=== PATIENT | female | born 1930 | race Caucasian/White ===

== ENCOUNTER 2017-10-23 16:13 | Emergency (ER) | payer OTHER ==
[2017-10-23] MEDS ORDERED: HYDROCODONE/APAP 5/325 MG TAB ONE (17:36)
--- NOTE | 2017-10-23 17:44 | RAD REPORT ---
EXAM DESCRIPTION: CT - Pelvis Wo Cont - 10/23/2017 5:27 pm CLINICAL HISTORY: Fall, pelvic pain, left groin pain COMPARISON: None. TECHNIQUE: Axial 2 millimeter thick images of the pelvis obtained without oral or IV contrast. Sagit patricia and coronal reconstruction images generated and reviewed. FINDINGS: No proximal femur fracture or femoral head dislocation. Nondisplaced fracture is present t he inferior margin of the ischium. Fractures are present at the superior and inferior pubic rami junc tion with the pubic symphysis. No acetabulum fractures seen. Subtle buckling of the cortex of the lef t sacral ala present. Sacral ala fracture is suspected. SI joint degenerative changes are present. No pathologic bone process. Advanced disc, endplate and facet degenerative changes are present at L4-5 and L5-S1. Acute component not suspected. A 9 x 5 centimeter sized hematoma is present in the soft tissues of the left pelvis superior to the r ami fracture. Mass effect displaces the bladder to the right. The hematoma shows variable attenuation with a 3 centimeter central portion that shows fluid fluid level. Additional a amorphous stranding i s seen in soft tissues. Patient has a large amount of stool filling but not dilating the colon. An acute colon process is not seen. IMPRESSION: Nondisplaced fractures of the superior and inferior rami at the pubic symphysis. There i s nondisplaced fracture of the left ischium and probable fracture of the left sacral ala. A 9 x 5 centimeter hematoma is present in the left anterior pelvic soft tissues along the superior ma rgin of the superior pubic ramus. No femur fracture.
--- NOTE | 2017-10-23 17:51 | RAD REPORT ---
EXAM DESCRIPTION: RAD - Shoulder Left 2 View - 10/23/2017 5:39 pm CLINICAL HISTORY: Shoulder pain, limited range of motion COMPARISON: None. TECHNIQUE: Internal and external rotation views of the left shoulder were obtained. FINDINGS: There is no fracture or dislocation. AC joint is normal in appearance. Acromial humeral sandie int space is normal. No abnormal soft tissue calcifications. Ribs and parenchyma of the upper left ch est show no acute findings. No foreign body, air or suspicious soft tissue finding. IMPRESSION: Negative two-view left shoulder examination for acute or significant finding.
[2017-10-23] MEDS ORDERED: ONDANSETRON 4 MG (ODT) TAB ONE (18:54)
--- NOTE | 2017-10-23 18:57 | RAD REPORT ---
EXAM DESCRIPTION: RAD - Hand Left 3 View - 10/23/2017 5:39 pm CLINICAL HISTORY: Hand pain after fall COMPARISON: None. FINDINGS: No fracture, dislocation or periosteal reaction noted. No acute or destructive bone proces s identified. IP joint degenerative changes are present mild to moderate in severity. Advanced degene rative change present at the third MCP joint with mild MCP joint elsewhere. Moderate degenerative edinson nge at the carpal first metacarpal articulation. No calcification or mass in the soft tissues. IMPRESSION: Left hand degenerative changes are present ranging from mild to advanced. No fracture or other acute finding confirmed.
--- NOTE | 2017-10-23 18:58 | RAD REPORT ---
EXAM DESCRIPTION: RAD - Wrist Left 3 View - 10/23/2017 5:39 pm CLINICAL HISTORY: Fall, wrist pain COMPARISON: None. FINDINGS: No fracture is identified. There is no dislocation or periosteal reaction noted. No acute or destructive bone process. Radiocarpal joint space is narrowed slightly. Carpal and metacarpal dege nerative changes are detailed in the hand report. Soft tissues near the distal ulna are prominent wit h the baseline unknown. No foreign body or calcification in the soft tissues. IMPRESSION: Soft tissue swelling near the distal ulna. No fracture or acute bone or joint finding.
--- NOTE | 2017-10-23 19:05 | ER ---
Nurse's Notes [facility] Name: Emani Alejandro Age: 87 yrs Sex: Female : 1930 Arrival Date: 10/23/2017 Time: 16:17 Bed 18 Private MD: Kranthi Owen T Diagnosis: NONDISPLACED FX OF SUPERIOR AND INFERIOR RAMI AT THE PUBIC SYMPHYSIS. ;ONDISPLACED FX LEFT ISCHIUM AND LEFT SACRAL ALA;HEMATOMA LEFT ANTERIOR PELVIC SOFT TISSUES Presentation: 10/23 16:28 Presenting complaint: Patient states: Pt fell onto concrete after turning around sv incorrectly. c/o left groin pain. Pt was able to ambulate after the fall. Care prior to arrival: None. Mechanism of Injury: Fall from standing position. 16:28 Acuity: SHRUTHI 3 sv 16:28 Method Of Arrival: Wheelchair sv 16:31 Transition of care: patient was not received from another setting of care. Onset of sv symptoms was October 23, 2017. 16:51 Risk Assessment: Do you want to hurt yourself or someone else? Patient reports no hj desire to harm self or others. Initial Sepsis Screen: Does the patient meet any 2 criteria? No. Patient's initial sepsis screen is negative. Does the patient have a suspected source of infection? No. Patient's initial sepsis screen is negative. 16:52 Trauma event details: Injury occurred in the [facility], Injury occurred: at home. Injury occurred: October 23, 2017. Triage Assessment: 16:45 General: Appears in no apparent distress. uncomfortable, Behavior is calm, cooperative, hj appropriate for age. 16:52 Pain: Complains of pain in groin. hj Trauma Activation: Not Applicable Physician: ED Physician; Name: ; Notified At: ; Arrived At: Physician: General Surgeon; Name: ; Notified At: ; Arrived At: Physician: Radiology; Name: ; Notified At: ; Arrived At: Physician: Respiratory; Name: ; Notified At: ; Arrived At: Physician: Lab; Name: ; Notified At: ; Arrived At: Historical: - Allergies: 16:30 No Known Allergies; sv - Home Meds: 16:30 Aspirin Oral [Active]; sv - PMHx: 16:30 Hypertension; Anxiety; High Cholesterol; Hypothyroidism; sv - PSHx: 16:30 Hysterectomy; Tonsillectomy; sv - Immunization history:: Adult Immunizations unknown. - Social history:: Smoking status: Patient/guardian denies using tobacco, Patient/guardian denies using alcohol. - Immunization history: Last tetanus immunization: unknown. - Ebola Screening: : Patient negative for fever greater than or equal to 101.5 degrees Fahrenheit, and additional compatible Ebola Virus Disease symptoms Patient denies exposure to infectious person Patient denies travel to an Ebola-affected area in the 21 days before illness onset. - Family history:: not pertinent. - Hospitalizations: : No recent hospitalization is reported. - History obtained from: . Screenin:44 Abuse screen: Denies threats or abuse. Denies injuries from another. Nutritional hj screening: No deficits noted. Tuberculosis screening: No symptoms or risk factors identified. Fall Risk None identified. Primary Survey: 16:44 A: Airway: patent, No supplemental oxygen in use on arrival. Oral cavity: clear, gag hj reflex present, Trachea midline. Breathing/Chest: Respiratory pattern: regular, Respiratory effort: spontaneous, unlabored, Breath sounds: clear, Chest inspection: symmetrical rise and fall of the chest. Circulation: Cardiac rhythm: sinus rhythm Heart tones present. Pulses: palpable right radial artery and left radial artery. Skin color: pink, Skin temperature: warm, dry. Disability Alert. 16:50 Reassessment Airway Airway Patent Oxygen No O2 Breathing/Chest Respiratory pattern hj Regular Respiratory effort Spontaneous Unlabored Breath sounds Clear Chest inspection Symmetrical Circulation Heart rhythm Sinus rhythm Heart tones Present Pulses Palpable Color [place] Temperature Warm Dry Disability Alert. 18:08 Reassessment Airway Airway Patent Oxygen No O2 Oral cavity Clear +Gag reflex Trachea hj Midline Breathing/Chest Respiratory pattern Regular Respiratory effort Spontaneous Unlabored Breath sounds Clear Chest inspection Symmetrical Circulation Heart rhythm Sinus rhythm Heart tones Present Pulses Palpable Color [place] Temperature Warm Dry Disability Alert. Secondary Survey: 16:44 HEENT: No deficits noted. Gastrointestinal: No deficits noted. : No signs and/or hj symptoms were reported regarding the genitourinary system. Musculoskeletal: Reports as documented in asessment;. Assessment: 16:53 Reassessment: see triage for assessment;. hj 18:07 Reassessment: Patient and/or family updated on plan of care and expected duration. Pain hj level reassessed. Patient is alert, oriented x 3, equal unlabored respirations, skin warm/dry/pink. sitting on wheel chair awaiting results and POC;. 19:38 Reassessment: Patient appears in no apparent distress at this time. Patient and/or jd3 family updated on plan of care and expected duration. Pain level reassessed. Patient is alert, oriented x 3, equal unlabored respirations, skin warm/dry/pink. Vital Signs: 16:30 BP 151 / 89; Pulse 77; Resp 18; Temp 98.7; Pulse Ox 94% ; Weight 47.63 kg; Height 5 ft. sv 4 in. (162.56 cm); Pain 0/10; 18:08 BP 150 / 88; Pulse 76; Resp 18; Pulse Ox 100% on R/A; hj 18:39 BP 140 / 62; Pulse 78; Resp 18; Pulse Ox 98% ; hj 19:37 BP 148 / 52; Pulse 82; Resp 16 S; Pulse Ox 95% on R/A; jd3 16:30 Body Mass Index 18.02 (47.63 kg, 162.56 cm) sv Mando Com[place] Score: 16:44 Eye Response: spontaneous(4). Verbal Response: oriented(5). Motor Response: obeys hj commands(6). Total: 15. Trauma Score (Adult): 16:44 Eye Response: spontaneous(1); Verbal Response: oriented(1); Motor Response: obeys hj commands(2); Systolic BP: > 89 mm Hg(4); Respiratory Rate: 10 to 29 per min(4); [place] Score: 15; Trauma Score: 12 ED Course: 16:17 Patient arrived in ED. mr 16:17 Kranthi Owen MD is Private Physician. mr 16:29 Triage completed. sv 16:31 Arm band placed on right wrist. sv 16:38 Anthony Corley, KEYSHA is Primary Nurse. hj 16:39 Ana Acosta FNP is PHCP. kav 16:39 Jak Schafer MD is Attending Physician. kav 16:51 Patient maintains SpO2 saturation greater than 95% on room air. hj 16:52 Patient has correct armband on for positive identification. Bed in low position. Call light in reach. Side rails up X 1. Adult w/ patient. 16:52 Thermoregulation: warm blanket given to patient. hj 17:05 Initial lab(s) drawn, by me, sent to lab. Inserted saline lock: 22 gauge in right hj antecubital area, using aseptic technique. Blood collected. 17:23 CT completed. Patient tolerated procedure well. Patient moved to CT via wheelchair. sw Patient moved back from CT. 17:[address] In Process Unspecified. EDMS 17:37 X-ray completed. Patient tolerated procedure well. Patient moved back from radiology. ml 17:37 Shoulder Left (2 View) XRAY In Process Unspecified. EDMS 17:37 Wrist Left (3 View) XRAY In Process Unspecified. EDMS 17:37 Hand Left 3 View XRAY In Process Unspecified. EDMS 19:15 Straight cath inserted, using sterile technique, 16 Fr. Specimen obtained. Returned jd3 clear yellow urine. Patient tolerated well. done by Susanne bentley. 19:47 No provider procedures requiring assistance completed. Patient transferred, IV remains jd3 in place. Administered Medications: 17:28 Drug: [place] 5 mg-325 mg 1 tabs Route: PO; hj 18:24 Follow up: Response: No adverse reaction; Pain is decreased hj 19:10 Follow up: Response: No adverse reaction; Pain is decreased hj 18:52 Drug: Zofran 4 mg Route: PO; hj 18:53 Follow up: Response: No adverse reaction; Nausea is decreased hj 19:09 Follow up: Response: No adverse reaction hj 19:22 Drug: NS 0.9% 1000 ml Route: IV; Rate: 75 ml/hr; Site: right antecubital; jd3 19:47 Follow up: IV Status: Infusion continued upon transfer jd3 Intake: 19:48 PO: 0ml; Total: 0ml. jd3 Output: 19:48 Urine: 150ml (Straight Cath); Total: 150ml. jd3 Outcome: 19:05 ER care complete, transfer ordered by MD. lópez 19:48 Transferred by ground EMS to [facility], Transfer form completed. X-rays sent jd3 w/ patient. Note: report given to [facility] and [facility] 19:48 Condition: stable 19:48 Instructed on the need for transfer, Demonstrated understanding of instructions. 19:49 Patient's length of stay in the Emergency Department was greater than 2 hours. waiting jd3 on transfer.Patient's length of stay extended due to 19:52 Patient left the ED. bs1 Signatures: Dispatcher [employer] Josy Ferguson RN RN Ana Noel, LIFTER DRIVER LIFTER DRIVER maribel Maldonado, Laurence mr Ricardo, Jeannie Pollard, Anthony Winters, RN RN lilian Dodge, Christiano RN RN jd3 Shayne, Anna Marie, RN RN bs1
--- NOTE | 2017-10-23 19:05 | EDPHYS ---
Physician Documentation [facility] Name: Emani Alejandro Age: 87 yrs Sex: Female : 1930 Arrival Date: 10/23/2017 Time: 16:17 Bed 18 Private MD: Kranthi Owen T ED Physician Jak Schafer HPI: 10/23 16:39 This 87 yrs old Female presents to ER via Wheelchair with complaints of Fall kav Injury. 17:11 Details of fall: The patient fell from an upright position, while walking. Onset: The kav symptoms/episode began/occurred acutely, just prior to arrival. Associated injuries: The patient sustained pelvis, left wrist and left hand, anterior aspect of left shoulder. 17:24 Severity of symptoms: At their worst the symptoms were moderate, just prior to arrival. kav The patient has not experienced similar symptoms in the past. The patient has not recently seen a physician. Patient reports that she was walking and fell on left hand, wrist , shoulder and pelvis. Reports pain in all areas.. Historical: - Allergies: 16:30 No Known Allergies; sv - Home Meds: 16:30 Aspirin Oral [Active]; sv - PMHx: 16:30 Hypertension; Anxiety; High Cholesterol; Hypothyroidism; sv - PSHx: 16:30 Hysterectomy; Tonsillectomy; sv - Immunization history:: Adult Immunizations unknown. - Social history:: Smoking status: Patient/guardian denies using tobacco, Patient/guardian denies using alcohol. - Immunization history: Last tetanus immunization: unknown. - Ebola Screening: : Patient negative for fever greater than or equal to 101.5 degrees Fahrenheit, and additional compatible Ebola Virus Disease symptoms Patient denies exposure to infectious person Patient denies travel to an Ebola-affected area in the 21 days before illness onset. - Family history:: not pertinent. - Hospitalizations: : No recent hospitalization is reported. - History obtained from: . ROS: 17:25 Constitutional: Negative for fever, chills, and weight loss, Eyes: Negative for injury, kav pain, redness, and discharge, ENT: Negative for injury, pain, and discharge, Neck: Negative for injury, pain, and swelling, Cardiovascular: Negative for chest pain, palpitations, and edema, Respiratory: Negative for shortness of breath, cough, wheezing, and pleuritic chest pain, Abdomen/GI: Negative for abdominal pain, nausea, vomiting, diarrhea, and constipation, Back: Negative for injury and pain, : Negative for injury, bleeding, discharge, and swelling, Skin: Negative for injury, rash, and discoloration, Neuro: Negative for headache, weakness, numbness, tingling, and seizure, Psych: Negative for depression, anxiety, suicide ideation, homicidal ideation, and hallucinations, Allergy/Immunology: Negative for hives, rash, and allergies, Endocrine: Negative for neck swelling, polydipsia, polyuria, polyphagia, and marked weight changes, Hematologic/Lymphatic: Negative for swollen nodes, abnormal bleeding, and unusual bruising. 17:25 MS/extremity: Positive for ecchymosis, pain, tenderness. Exam: 17:25 Constitutional: This is a well developed, well nourished patient who is awake, alert, kav and in no acute distress. Head/Face: Normocephalic, atraumatic. Eyes: Pupils equal round and reactive to light, extra-ocular motions intact. Lids and lashes normal. Conjunctiva and sclera are non-icteric and not injected. Cornea within normal limits. Periorbital areas with no swelling, redness, or edema. ENT: Nares patent. No nasal discharge, no septal abnormalities noted. Tympanic membranes are normal and external auditory canals are clear. Oropharynx with no redness, swelling, or masses, exudates, or evidence of obstruction, uvula midline. Mucous membranes moist. Neck: Trachea midline, no thyromegaly or masses palpated, and no cervical lymphadenopathy. Supple, full range of motion without nuchal rigidity, or vertebral point tenderness. No Meningismus. Chest/axilla: Normal chest wall appearance and motion. Nontender with no deformity. No lesions are appreciated. Cardiovascular: Regular rate and rhythm with a normal S1 and S2. No gallops, murmurs, or rubs. Normal PMI, no JVD. No pulse deficits. Respiratory: Lungs have equal breath sounds bilaterally, clear to auscultation and percussion. No rales, rhonchi or wheezes noted. No increased work of breathing, no retractions or nasal flaring. Abdomen/GI: Soft, non-tender, with normal bowel sounds. No distension or tympany. No guarding or rebound. No evidence of tenderness throughout. Back: No spinal tenderness. No costovertebral tenderness. Full range of motion. Skin: Warm, dry with normal turgor. Normal color with no rashes, no lesions, and no evidence of cellulitis. Neuro: Awake and alert, GCS 15, oriented to person, place, time, and situation. Cranial nerves II-XII grossly intact. Motor strength 5/5 in all extremities. Sensory grossly intact. Cerebellar exam normal. Normal gait. Psych: Awake, alert, with orientation to person, place and time. Behavior, mood, and affect are within normal limits. 17:25 Musculoskeletal/extremity: Extremities: noted in the anterior aspect of left shoulder: pain, noted in the left hand: ecchymosis, pain, swelling, noted in the left wrist: ecchymosis, pain, swelling, Noted in pelvis: pain. Vital Signs: 16:30 BP 151 / 89; Pulse 77; Resp 18; Temp 98.7; Pulse Ox 94% ; Weight 47.63 kg; Height 5 ft. sv 4 in. (162.56 cm); Pain 0/10; 18:08 BP 150 / 88; Pulse 76; Resp 18; Pulse Ox 100% on R/A; hj 18:39 BP 140 / 62; Pulse 78; Resp 18; Pulse Ox 98% ; hj 19:37 BP 148 / 52; Pulse 82; Resp 16 S; Pulse Ox 95% on R/A; jd3 16:30 Body Mass Index 18.02 (47.63 kg, 162.56 cm) sv Mando Coma Score: 16:44 Eye Response: spontaneous(4). Verbal Response: oriented(5). Motor Response: obeys hj commands(6). Total: 15. Trauma Score (Adult): 16:44 Eye Response: spontaneous(1); Verbal Response: oriented(1); Motor Response: obeys hj commands(2); Systolic BP: > 89 mm Hg(4); Respiratory Rate: 10 to 29 per min(4); [place] Score: 15; Trauma Score: 12 MDM: 16:39 Medical screening is not applicable. [facility] 17:25 Data reviewed: vital signs, nurses notes. 10/23 19:01 Order name: CBC with Diff 10/23 19:01 Order name: CMP 10/23 17:11 Order name: Shoulder Left (2 View) XRAY; Complete Time: 18:53 kav 10/23 17:11 Order name: Wrist Left (3 View) XRAY; Complete Time: 19:01 kav 10/23 17:11 Order name: Pelvis Wo Cont CT; Complete Time: 18:53 kav 10/23 19:34 Order name: Urine Dipstick--Ancillary (enter results) rg2 10/23 17:13 Order name: Hand Left 3 View XRAY; Complete Time: 19:01 kav 10/23 19:01 Order name: Urine Dipstick-Ancillary (obtain specimen); Complete Time: 19:46 kav Administered Medications: 17:28 Drug: [place] 5 mg-325 mg 1 tabs Route: PO; hj 18:24 Follow up: Response: No adverse reaction; Pain is decreased hj 19:10 Follow up: Response: No adverse reaction; Pain is decreased hj 18:52 Drug: Zofran 4 mg Route: PO; hj 18:53 Follow up: Response: No adverse reaction; Nausea is decreased hj 19:09 Follow up: Response: No adverse reaction hj 19:22 Drug: NS 0.9% 1000 ml Route: IV; Rate: 75 ml/hr; Site: right antecubital; jd3 19:47 Follow up: IV Status: Infusion continued upon transfer jd3 Disposition: 10/23/17 19:05 Transfer ordered to [facility]. Diagnosis are NONDISPLACED FX OF SUPERIOR AND INFERIOR RAMI AT THE PUBIC SYMPHYSIS. , ONDISPLACED FX LEFT ISCHIUM AND LEFT SACRAL ALA, HEMATOMA LEFT ANTERIOR PELVIC SOFT TISSUES. - Reason for transfer: Higher level of care. - Accepting physician is DR. BRIGHT. - Condition is Stable. - Problem is new. - Symptoms have improved. Addendum: 11/01/2017 21:07 Co-signature as Attending Physician, Jak Schafer MD. r n Signatures: Dispatcher [employer] Josy Ferguson RN Ana Vasquez FNP FNP Jak Keyes MD MD rn Joaquin, Henry, RN RN hj Davies, Jonathon, RN RN jAnna Marie Causey RN RN bs1 Corrections: (The following items were deleted from the chart) 10/23 19:12 19:05 10/23/2017 19:05 Transfer ordered to [facility]. kav Diagnosis is NONDISPLACED FX OF SUPERIOR AND INFERIOR RAMI AT THE PUBIC SYMPHYSIS. ; ONDISPLACED FX LEFT ISCHIUM AND LEFT SACRAL ALA; HEMATOMA LEFT ANTERIOR PELVIC SOFT TISSUES. Reason for transfer: Higher level of care. Accepting physician is . Condition is Stable. Problem is new. Symptoms have improved. kav 19:52 19:12 10/23/2017 19:05 Transfer ordered to [facility]. bs1 Diagnosis is NONDISPLACED FX OF SUPERIOR AND INFERIOR RAMI AT THE PUBIC SYMPHYSIS. ; ONDISPLACED FX LEFT ISCHIUM AND LEFT SACRAL ALA; HEMATOMA LEFT ANTERIOR PELVIC SOFT TISSUES. Reason for transfer: Higher level of care. Accepting physician is DR. BRIGHT. Condition is Stable. Problem is new. Symptoms have improved. kav
[2017-10-23] MEDS ORDERED: NA CHLORIDE 0.9% 1,000 ML ONE (19:12)
[2017-10-23 19:38] LABS: Absolute Lymphocytes (CBC) 1.4 K/uL (0.7-4.9); Absolute Monocytes 1.1 K/uL (0.1-1.3); Absolute Neutrophil 15.4 K/uL (1.8-8.0); Basophils % 0.7 % (0-1.3); Eosinophils % 0.3 % (0-4.4); Hematocrit 36.8 % (36.0-45.0); Lymphocytes % 7.9 % (15.3-44.8); MCH 30.3 pg (27.0-35.0); MCV 92.2 fL (80-100); MPV 9.6 fL (7.6-11.3); Monocytes % 5.8 % (3.3-12.3); RBC Red Blood Cell Count 3.99 M/uL (3.86-4.86)
[2017-10-23 19:50] LABS: Albumin 3.7 g/dL (3.4-5.0); Bilirubin Total 0.5 mg/dL (0.2-1.0); Protein, Total 7.2 g/dL (6.4-8.2)
[2017-10-23 20:13] LABS: Urine Blood TRACE (NEG); Urine Glucose NEGATIVE (NEG); Urine Protein NEGATIVE (NEG); Urine pH 5.5 (5.0-7.0)
== END 2017-10-23 19:52 | disposition short-term general hospital (02) ==
LOC: ER 16:13
DX: S32.512A Fracture of superior rim of left pubis, initial encounter for closed fracture (principal); S32.592A Other specified fracture of left pubis, initial encounter for closed fracture; S32.692A Other specified fracture of left ischium, initial encounter for closed fracture; W17.89XA Other fall from one level to another, initial encounter; Y93.01 Activity, walking, marching and hiking; Y92.019 Unspecified place in single-family (private) house as the place of occurrence of the external cause; I10 Essential (primary) hypertension; E78.00 Pure hypercholesterolemia, unspecified; E03.9 Hypothyroidism, unspecified; S30.0XXA Contusion of lower back and pelvis, initial encounter
CPT/HCPCS: 36415; 72192; 73030; 73110; 73130; 80053; 81003; 85025; J7030; 51702; 99285

== ENCOUNTER 2020-12-26 10:32 | Emergency (ER) | payer OTHER ==
[2020-12-26] MEDS ORDERED: TETANUS & DIPHTHERIA TOX,ADULT 0.5 ML VIAL ONE (11:51)
[2020-12-26] MEDS ORDERED: LIDOCAINE 1% MPF 30 ML VIAL ONE (11:52)
[2020-12-26] MEDS ORDERED: LIDOCAINE 1% W/EPI 1:100,000 MDV 20 ML VIAL ONE (12:03)
--- NOTE | 2020-12-26 12:10 | ER ---
Nurse's Notes [facility] Name: Emani Alejandro Age: 89 yrs Sex: Female : 1930 Arrival Date: 12/26/2020 Time: 10:35 Bed 26 Private MD: Kranthi Owen T Diagnosis: Laceration without foreign body of right elbow, initial encounter;Hypertensive heart disease without heart failure Presentation: 12/26 10:50 Chief complaint: Patient states: "I [place] walking the mall and I was walking fast and got aa5 my paper tissue and fell". Pt c/o right elbow pain. Coronavirus screen: At this time, the client does not indicate any symptoms associated with coronavirus-19. Ebola Screen: Patient negative for fever greater than or equal to 101.5 degrees Fahrenheit, and additional compatible Ebola Virus Disease symptoms. Initial Sepsis Screen: Does the patient meet any 2 criteria? No. Patient's initial sepsis screen is negative. Does the patient have a suspected source of infection? No. Patient's initial sepsis screen is negative. Risk Assessment: Do you want to hurt yourself or someone else? Patient reports no desire to harm self or others. Onset of symptoms was December 26, 2020. 10:50 Method Of Arrival: Ambulatory aa5 10:50 Acuity: SHRUTHI 4 aa5 12:48 Care prior to arrival: None. Mechanism of Injury: Fall from standing position. kh1 Historical: - Allergies: 10:51 No Known Allergies; aa5 - PMHx: 10:51 Anxiety; High Cholesterol; Hypertension; Hypothyroidism; aa5 - Immunization history:: Last tetanus immunization: unknown. - Social history:: Smoking status: Patient denies any tobacco usage or history of. Screenin:45 Abuse screen: Denies threats or abuse. Tuberculosis screening: No symptoms or risk 1 factors identified. 12:48 Nutritional screening: No deficits noted. Fall Risk Fall in past 12 months (25 points). kh1 IV access (20 points). Ambulatory Aid- Crutches/Cane/Walker (15 pts). Gait- Weak (10 pts.). Primary Survey: 12:44 NO uncontrolled hemorrhage observed. A: The patient is alert. Airway: patent. kh1 Breathing/Chest: Respiratory pattern: regular, Respiratory effort: spontaneous, unlabored, Breath sounds: clear, Chest inspection: symmetrical rise and fall of the chest. Circulation: Cardiac rhythm: sinus rhythm Heart tones present. Pulses: palpable . Disability Alert. Exposure/Environment: All clothing and personal items were removed. Forensic evidence collection is not deemed to be indicated at this time. Items placed in patient belonging bag. There is no evidence of uncontrolled external bleeding. Obvious injury(ies) are noted at this time: right elbow lac. 12:49 Reassessment Airway Airway Patent Breathing/Chest Respiratory pattern Regular kh1 Respiratory effort Spontaneous Breath sounds Clear Chest inspection Symmetrical Circulation Heart rhythm Sinus rhythm. Assessment: 11:00 General: Appears in no apparent distress. comfortable, well groomed, Behavior is calm, kh1 cooperative, appropriate for age. 12:44 Pain: Denies pain. kh1 12:46 Reassessment: Patient appears in no apparent distress at this time. No changes from critical access hospital previously documented assessment. Patient and/or family updated on plan of care and expected duration. Pain level reassessed. Patient is alert, oriented x 3, equal unlabored respirations, skin warm/dry/pink. Vital Signs: 10:50 BP 176 / 82; Pulse 73; Resp 20 S; Temp 98.2(TE); Pulse Ox 99% on R/A; Weight 44.45 kg; aa5 11:00 BP 199 / 77; Pulse 67; Resp 20; Pulse Ox 99% on R/A; kh1 12:00 BP 213 / 69; Pulse 64; Resp 18; Temp 98.0; Pulse Ox 100% ; kh1 12:43 BP 226 / 68 (auto/); Pulse 66 MON; Resp 18 S; Pulse Ox 100% on R/A; kh1 13:25 BP 166 / 113; Pulse 62; Resp 18; Temp 98.2(O); Pulse Ox 99% on R/A; kh1 [place] Coma Score: 12:46 Eye Response: spontaneous(4). Verbal Response: oriented(5). Motor Response: obeys kh1 commands(6). Total: 15. Trauma Score (Adult): 12:46 Eye Response: spontaneous(1); Verbal Response: oriented(1); Motor Response: obeys kh1 commands(2); Systolic BP: > 89 mm Hg(4); Respiratory Rate: 10 to 29 per min(4); Mando Score: 15; Trauma Score: 12 ED Course: 10:35 Patient arrived in ED. am2 10:35 Kranthi Owen MD is Private Physician. am2 10:51 Triage completed. aa5 10:51 Arm band placed on. aa5 10:56 Ji Ro PA is PHCP. cp 10:56 Ji Adams MD is Attending Physician. cp 11:25 Cristela Izquierdo is Primary Nurse. kh1 12:08 Kranthi Owen MD is Referral Physician. cp 12:46 Patient maintains SpO2 saturation greater than 95% on room air. kh1 12:47 Assist provider with laceration repair on back of left arm using sutures. Set up tray. kh1 Dressed with 4X4s, Kerlix. 12:49 Patient has correct armband on for positive identification. Bed in low position. Call kh1 light in reach. Side rails up X 1. Adult w/ patient. 13:34 Patient did not have IV access during this emergency room visit. 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 Exp: kh1 06/30/2022. Lot #: [id number]. } Route: IM; Site: left deltoid; 12:41 Drug: cloNIDine 0.2 mg Route: PO; kh1 Intake: 12:50 PO: 0ml; IV: 0ml; Tubes: 0ml (); Total: 0ml. kh1 Outcome: 12:09 Discharge ordered by MD. cp 12:47 Patient's length of stay was not longer than 2 hours. kh1 13:34 Discharged to home via wheelchair. kh1 13:34 Condition: stable 13:34 Discharge instructions given to patient, Instructed on discharge instructions, follow up and referral plans. Demonstrated understanding of instructions, follow-up care. 13:35 Patient left the ED. kh1 Signatures: Le Cole RN RN aa5 Ji Ro PA PA cp Moreno, Amanda am2 Cristela Izquierdo kh1 Corrections: (The following items were deleted from the chart) 12:46 12:44 General: Appears in no apparent distress. comfortable, well groomed, Behavior is kh1 calm, cooperative, appropriate for age, kh1
--- NOTE | 2020-12-26 12:10 | EDPHYS ---
Physician Documentation [facility] Name: Emani Alejandro Age: 89 yrs Sex: Female : 1930 Arrival Date: 12/26/2020 Time: 10:35 Bed 26 Private MD: Kranthi Owen T ED Physician Ji Adams HPI: 12/26 11:08 This 89 yrs old Female presents to ER via Ambulatory with complaints of Fall cp Injury, Elbow Injury. 11:08 The patient or guardian complains of a laceration, clean. The complaints affect the cp right elbow. Context: resulted from a fall. Onset: The symptoms/episode began/occurred this morning. Treatment prior to arrival includes: bandaged. Associated signs and symptoms: The patient has no apparent associated signs or symptoms. Historical: - Allergies: 10:51 No Known Allergies; aa5 - PMHx: 10:51 Anxiety; High Cholesterol; Hypertension; Hypothyroidism; aa5 - Immunization history:: Last tetanus immunization: unknown. - Social history:: Smoking status: Patient denies any tobacco usage or history of. ROS: 11:09 MS/extremity: Positive for laceration, of the right elbow, Negative for decreased range cp of motion, deformity, pain, paresthesias. 11:09 Constitutional: Negative for body aches, chills, fever, poor PO intake. cp 11:09 Eyes: Negative for injury, pain, redness, and discharge. cp 11:09 ENT: Negative for ear pain, sore throat, difficulty swallowing, difficulty handling secretions. 11:09 Cardiovascular: Negative for chest pain, palpitations. 11:09 Respiratory: Negative for cough, shortness of breath, wheezing. 11:09 Abdomen/GI: Negative for abdominal pain, nausea, vomiting, and diarrhea. 11:09 Neuro: Negative for altered mental status, headache, loss of consciousness, numbness, syncope, weakness. 11:09 All other systems are negative. Exam: 11:15 Constitutional: The patient appears in no acute distress, alert, awake, cp non-diaphoretic, non-toxic, well developed, frail. 11:15 Head/Face: Normocephalic, atraumatic. cp 11:15 Eyes: Periorbital structures: appear normal, Conjunctiva: normal, no exudate, no injection, Lids and lashes: appear normal, bilaterally. 11:15 ENT: External ear(s): are unremarkable, Nose: is normal, Posterior pharynx: Airway: no evidence of obstruction, patent. 11:15 Neck: ROM/movement: is normal, is supple, without pain, no range of motions limitations. 11:15 Chest/axilla: Inspection: normal. 11:15 Cardiovascular: Rate: normal, Edema: is not appreciated, JVD: is not appreciated. 11:15 Respiratory: the patient does not display signs of respiratory distress, Respirations: normal, no use of accessory muscles, no retractions, labored breathing, is not present. 11:15 Abdomen/GI: Exam negative for discomfort, distension, guarding, Inspection: abdomen appears normal. 11:15 Back: pain, is absent, ROM is normal. 11:15 Skin: injury, laceration(s), the wound is approximately 3 cm(s), of the right elbow, cp that can be described as clean, no foreign body, irregular, with mild bleeding. 11:15 Musculoskeletal/extremity: Joints: the right elbow displays no pain to palpation and cp no pain with ROM. 11:15 Neuro: Orientation: to person, place \T\ time. Mentation: is normal. Vital Signs: 10:50 BP 176 / 82; Pulse 73; Resp 20 S; Temp 98.2(TE); Pulse Ox 99% on R/A; Weight 44.45 kg; aa5 11:00 BP 199 / 77; Pulse 67; Resp 20; Pulse Ox 99% on R/A; kh1 12:00 BP 213 / 69; Pulse 64; Resp 18; Temp 98.0; Pulse Ox 100% ; kh1 12:43 BP 226 / 68 (auto/); Pulse 66 MON; Resp 18 S; Pulse Ox 100% on R/A; kh1 13:25 BP 166 / 113; Pulse 62; Resp 18; Temp 98.2(O); Pulse Ox 99% on R/A; kh1 [place] Coma Score: 12:46 Eye Response: spontaneous(4). Verbal Response: oriented(5). Motor Response: obeys kh1 commands(6). Total: 15. Trauma Score (Adult): 12:46 Eye Response: spontaneous(1); Verbal Response: oriented(1); Motor Response: obeys kh1 commands(2); Systolic BP: > 89 mm Hg(4); Respiratory Rate: 10 to 29 per min(4); Mando Score: 15; Trauma Score: 12 Laceration: 12:06 Wound Repair of 3cm ( 1.2in ) subcutaneous laceration to right elbow. Irregularly cp shaped.. Distal neuro/vascular/tendon intact. Anesthesia: Wound infiltrated with 4 mls of 1% lidocaine w/ Epi. Wound prep: Moderate cleansing by me, Wound irrigation by me. Skin closed with 7 5-0 Prolene using interrupted sutures and sterile technique. Dressed with Bacitracin, 4x4's. Patient tolerated well. MDM: 10:57 Patient medically screened. cp 12:00 Differential diagnosis: open fracture, closed fracture, contusion, simple laceration. cp 12:07 Data reviewed: vital signs, nurses notes, and as a result, I will discharge patient. cp 12:08 Counseling: I had a detailed discussion with the patient and/or guardian regarding: the cp historical points, exam findings, and any diagnostic results supporting the discharge/admit diagnosis, the presence of at least one elevated blood pressure reading (>120/80) during this emergency department visit, the need for outpatient follow up, for definitive care, an cloud engineer. 12:08 ED course: VS noted. Discussed elevated blood pressure. Patient reports white coat cp syndrome and anxiety causing elevated blood pressure. Will discharge to home for continued monitoring. 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 Exp: kh1 06/30/2022. Lot #: [id number]. } Route: IM; Site: left deltoid; 12:41 Drug: cloNIDine 0.2 mg Route: PO; kh1 Disposition: 12/27 05:50 Co-signature as Attending Physician, Ji Adams MD I agree with the assessment and edinson plan of care. Disposition Summary: 12/26/20 12:09 Discharge Ordered Location: Home cp Problem: new cp Symptoms: have improved cp Condition: Stable cp Diagnosis - Laceration without foreign body of right elbow, initial encounter cp - Hypertensive heart disease without heart failure cp Followup: cp - With: Kranthi Owen MD - When: 1 - 2 days - Reason: blood pressure recheck Discharge Instructions: - Discharge Summary Sheet cp - Hypertension, Adult cp - Laceration Care, Adult cp - How to Take Your Blood Pressure, Ubar-lt-Scis cp Forms: - Medication Reconciliation Form cp - Thank You Letter cp - Antibiotic Education cp - Prescription Opioid Use cp Signatures: Ji Adams MD MD cha Calderon, Audri, RN RN aa5 Ji Ro PA Cristela Dotson cp kh1
[2020-12-26] MEDS ORDERED: cloNIDine HCL 0.1 MG TAB ONE (13:02)
[2020-12-26 13:47] VITALS: BP 166/113; TEMP 98.2; O2SAT 99
== END 2020-12-26 13:35 | disposition home or self-care (01) ==
LOC: ER 10:32
PROC: 0JQG0ZZ Repair Right Lower Arm Subcutaneous Tissue and Fascia, Open Approach (ICD-10-PCS; principal; 2020-12-26)
DX: S51.011A Laceration without foreign body of right elbow, initial encounter (principal); I11.9 Hypertensive heart disease without heart failure; W19.XXXA Unspecified fall, initial encounter; Z23 Encounter for immunization
CPT/HCPCS: 90471; 90714; 99284